=== PATIENT | male | born 1975 | race Native Hawaiian/Other Pacific Islander ===

== ENCOUNTER 2020-04-06 09:47 | Emergency (ER) | payer OTHER ==
[~2020-04-06] VITALS: Ht 185.4 cm; Wt 72.6 kg
[2020-04-06 09:54] VITALS: TEMP 98.9
[2020-04-06 10:36] LABS: PLATELET COUNT 186 K/uL (142-355)
[2020-04-06 10:39] LABS: POTASSIUM 3.7 mmol/L (3.6-5.2); SODIUM 135 mmol/L (136-145)
[2020-04-06 10:50] LABS: PARTIAL THROMBOPLASTIN TIME 31.5 SECONDS (24.5-33.6)
[2020-04-06 11:30] VITALS: BP 124/87
== END 2020-04-06 11:40 | disposition home or self-care (01) ==
LOC: ED 09:47
PROVIDERS: Hospitalist
DX: J40 Bronchitis, not specified as acute or chronic (principal); R07.89 Other chest pain; F17.210 Nicotine dependence, cigarettes, uncomplicated
CPT/HCPCS: 36415; 80053; 82550; 83880; 84484; 85027; 85379; 85610; 85730; 93005; 96365; 96375; 99284; J0696; J1885